=== PATIENT | female | born 1945 | race Caucasian/White ===

== ENCOUNTER 2023-12-18 08:53 | Emergency (ER) | payer BC ==
[~2023-12-18] VITALS: Ht 160 cm; Wt 63.5 kg
[2023-12-18 08:59] VITALS: BP_SYST 142; PULSE 70; RESP 18; TEMP 98.3; O2SAT 98
[2023-12-18] MEDS ORDERED: RIVA20TA PO (09:19)
[2023-12-18] MEDS ORDERED: LATA7.5D TP (09:19)
[2023-12-18] MEDS ORDERED: OLME5TAB32 PO (09:19)
[2023-12-18] MEDS ORDERED: ROSU10TA2 PO (09:19)
[2023-12-18] MEDS ORDERED: PANT20TA2 PO (09:19)
[2023-12-18 09:29] LABS: BASOPHILS % (AUTO) 0.3 % (0.0-2.0); EOSINOPHILS # (AUTO) 0.3 K/uL (0.0-0.4); EOSINOPHILS % (AUTO) 3.3 % (0.0-4.0); HEMOGLOBIN 13.1 g/dL (12.0-16.0); LYMPHOCYTES # (AUTO) 1.2 K/uL (1.0-5.5); LYMPHOCYTES % (AUTO) 13.5 % (20.5-51.5); MEAN CORPUSCULAR HEMOGLOBIN 32 pg (27-31); MEAN CORPUSCULAR HGB CONC 35 % (32-36); MEAN CORPUSCULAR VOLUME 92 fL (79.0-98.0); MONOCYTES # (AUTO) 0.8 K/uL (0.0-1.0); MONOCYTES % (AUTO) 8.3 % (1.7-9.3); NEUTROPHILS # (AUTO) 6.8 K/uL (1.8-7.7); NEUTROPHILS % (AUTO) 74.6 % (40.0-70.0); PLATELET COUNT (AUTO) 231 K/uL (130-430); RED BLOOD CELL COUNT(AUTO) 4.13 MIL/uL (4.2-6.2); RED CELL DISTRIBUTION WIDTH 13.5 % (9.0-15.0); WHITE BLOOD COUNT (AUTO) 9.1 K/uL (4.8-10.8)
[2023-12-18] MEDS ORDERED: OLME20TA69 PO (09:29)
[2023-12-18 09:56] LABS: ANION GAP 6 (5-15); CALCIUM 9.5 mg/dL (8.4-11.0); CARBON DIOXIDE 27 mmol/L (23-29); CHLORIDE 107 mmol/L (98-107); CREATININE 0.87 mg/dL (0.55-1.30); GLUCOSE 125 mg/dL (74-106); POTASSIUM 3.7 mmol/L (3.5-5.1); SODIUM SERUM 140 mmol/L (136-145); UREA NITROGEN, BLOOD 18 mg/dL (8-21)
[2023-12-18 11:08] VITALS: BP_SYST 121; PULSE 68; RESP 18; TEMP 97.6; O2SAT 97
== END 2023-12-18 14:07 | disposition home or self-care (01) ==
LOC: SED 08:53
DX: I48.0 Paroxysmal atrial fibrillation (principal); R00.2 Palpitations; R42 Dizziness and giddiness; E78.5 Hyperlipidemia, unspecified; Z79.01 Long term (current) use of anticoagulants
CPT/HCPCS: 36415; 80048; 83735; 84484; 85025; 93005; 99284